=== PATIENT | female | born 1940 | race Caucasian/White ===

== ENCOUNTER 2018-05-07 19:35 | Emergency (ER) | payer MEDICARE, BC ==
[~2018-05-07] VITALS: Ht 157.5 cm; Wt 68.0 kg
[2018-05-07 19:40] VITALS: BP 165/100
[2018-05-07] MEDS ORDERED: HYDROcodone/APAP 5/325MG 1 TAB TABLET PO ONE (20:00)
[2018-05-07] MEDS ORDERED: NEOMYCIN/BACITRAC/POLY TOPICAL OINTMENT 28GM TUBE. TP ONE (20:00)
--- NOTE | 2018-05-07 20:14 | PHYS DOC ---
Past History Past Medical History: High Cholesterol, Hypothyroid Past Medical History Gallstones, Ovarian cyst Past Surgical History: Cholecystectomy, Oophorectomy, Tonsillectomy Past Surgical History tooth extractions Smoking: Quit Greater Than 1 Year Alcohol Use: Rarely Drug Use: None Adult General Chief Complaint Chief Complaint: MECHANICAL FALL HPI HPI Patient is a 77 yo female who presented to the ED ambulatory and complaining of right shoulder pain. Patient states that at approximately 1915 today she was using her riding income tax preparer when she fell off. She states that she hit her right shoulder. She denies any head pain or neck pain. Her shoulder pain is rated as 8/10 in severity. Moving her right shoulder makes the pain worse and nothing makes it better. She denies any radiation of pain. Denies use of blood thinners. Denies numbness or tingling. Denies pleuritic pain. Denies chest wall pain. Ambulatory without difficulty. Patient report she also struck her left leg on the mower causing some abrasions/skin tears to lower left leg. Reports last tetanus < 5 years ago. Review of Systems Review of Systems Constitutional: Denies fever or chills [] Eyes: Denies change in visual acuity, redness, or eye pain [] HENT: Denies nasal congestion or sore throat [] Respiratory: Denies cough or shortness of breath [] Cardiovascular: Denies chest pain and palpitations [] GI: Denies abdominal pain, nausea, vomiting, bloody stools or diarrhea [] : Denies dysuria or hematuria [] Musculoskeletal: Endorses right shoulder pain and left lower extremity pain. Denies neck or back pain [] Integument: Endorses several superficial skin lacerations on her left lower extremity [] Neurologic: Denies headache, focal weakness or sensory changes [] Complete systems were reviewed and found to be within normal limits, except as documented in this note. Physical Exam Physical Exam Constitutional: Well developed, well nourished, no acute distress, non-toxic appearance. [] HENT: Normocephalic, atraumatic, oropharynx moist, dentures in place Eyes: PERRL, EOMI. No nystagmus Neck: Normal range of motion, no midline tenderness, supple, no stridor. [] Cardiovascular: Heart rate regular rhythm, no murmur [] Lungs & Thorax: Bilateral breath sounds clear to auscultation, no chest wall/ rib tenderness on palpation Abdomen: Soft, no tenderness, Pelvis stable and nontender Skin: Warm, dry, no erythema, no rash. 2 superficial skin tears to the left lower extremity anterior medial aspect of up. [] Back: No midline tenderness, no CVA tenderness. [] Extremities: Tenderness to lateral aspect of right shoulder. Hematoma noted over the proximal aspect of the left tibia. No tibia plateau tenderness. Left lower extremity ROM intact. Right shoulder ROM restricted in abduction to 90 degrees. Distal clavicle tender to palpation but no deformity noted. [] Neurologic: Alert and oriented X 3, normal motor function, normal sensory function, no focal deficits noted. Cerebellar function intact. Psychologic: Affect normal, judgement normal, mood normal. [] EKG EKG [] Radiology/Procedures Radiology/Procedures Preliminary interpretation of right shoulder XR 3 view: No acute fracture or dislocation noted Course & Med Decision Making Course & Med Decision Making Pertinent Labs and Imaging studies reviewed. (See chart for details) Patient is a 77 yo female who presents to the ED complaining of right shoulder pain after falling off her riding income tax preparer. Denies LOC. Patient neurologically intact. No hx of blood thinner use. Cervical spine without tenderness. XR of right shoulder without acute fracture or dislocation. Left leg with 2 skin tears that were cleaned and dressed. Tetanus up to date. Hematoma noted without bony tenderness. Patient with full ROM without difficulty. ICE and BHAVNA wrap applied. Pain addressed. Sling provided with education on need to perform "shoulder circles" to prevent frozen shoulder syndrome. Patient stable for discharge with outpatient follow-up with PCP/ Orthopedics. Orthopedic referral provided. Discussed findings and plan with patient and family, who acknowledge understanding and agreement. Dragon Disclaimer Dragon Disclaimer This electronic medical record was generated, in whole or in part, using a voice recognition dictation system. Departure Departure: Impression: Primary Impression: Fall Additional Impressions: Right shoulder pain Skin tear Contusion of left lower leg Disposition: 01 HOME, SELF-CARE Referrals: BUTCH PEDROZA MD (PCP) [facility] Patient Instructions: Fall Prevention and Home Safety, Zjor-yo-Kivk, Hematoma, Biba-ly-Grlt, Shoulder Pain, Vmrd-mx-Rqus, Skin Tear Care, Wabz-xm-Atup Scripts Hydrocodone Bit/Acetaminophen (NORCO 5-325 TABLET) 1 Each Tablet 1 TAB PO Q6HRS PRN for PAIN, #10 TAB Prov: MILENA WEBBER DO 05/07/18 Problem Qualifiers Primary Impression: Fall Encounter type: initial encounter Qualified Codes: W19.XXXA - Unspecified fall, initial encounter Additional Impressions: Right shoulder pain Chronicity: acute Qualified Codes: M25.511 - Pain in right shoulder Contusion of left lower leg Encounter type: initial encounter Qualified Codes: S80.12XA - Contusion of left lower leg, initial encounter MILENA WEBBER DO May 07, 2018 20:14
[2018-05-07] MEDS ORDERED: NEOMY/BACITR/POLYMYXIN OINT PACKET. TP ONE (20:23)
[2018-05-07] MEDS ORDERED: HYDR-971 PO (21:11)
[2018-05-07] MEDS ORDERED: KETOROLAC 30 MG/ML VIAL. ONE (21:34)
[2018-05-07] MEDS ORDERED: KETOROLAC 60 MG/2 ML VIAL. IM ONE (21:45)
--- NOTE | 2018-05-08 08:56 | RAD ---
INDICATION: Pain after fall today. Pain with motion. TECHNIQUE: 3 views of the right shoulder are submitted for review. No comparison is available. FINDINGS: There are mild degenerative changes at the right acromioclavicular joint. An acute fracture or dislocation is not apparent. IMPRESSION: Negative for fracture. Electronically signed by: Paul Bonilla MD (05/08/2018 8:52 AM) [id number]
== END 2018-05-07 21:35 | disposition home or self-care (01) ==
LOC: ER 19:35
DX: S81.812A Laceration without foreign body, left lower leg, initial encounter (principal); M25.511 Pain in right shoulder; E78.00 Pure hypercholesterolemia, unspecified; E03.9 Hypothyroidism, unspecified; Z87.891 Personal history of nicotine dependence; W28.XXXA Contact with powered lawn mower, initial encounter; Y93.I9 Activity, other involving external motion; Y92.89 Other specified places as the place of occurrence of the external cause; Y99.8 Other external cause status
CPT/HCPCS: 73030; 96372; 99284; J1885

== ENCOUNTER → 2018-05-09 | Outpatient (CLI) | payer MEDICARE, BC ==
[2018-05-07 19:40] VITALS: BP 165/100
[~2018-05-09] MED LIST: HYDR-971 PO
--- NOTE | 2018-05-09 12:56 | RAD ---
Clinical Indication: Fall off lawnmower 2 days ago, headache Technique: Study is dated May 09, 2018. CT images of the head were obtained from the skull base to the vertex without IV contrast. There are no comparison studies available. One or more of the following individualized dose reduction techniques were utilized for this examination: 1. Automated exposure control 2. Adjustment of the mA and/or kV according to patient size 3. Use of iterative reconstruction technique Findings: There is diffuse, symmetric prominence of the ventricles and subarachnoid spaces consistent with age-related parenchymal volume loss. There are areas of scattered decreased attenuation in the supratentorial white matter. While nonspecific, findings are likely secondary to small vessel ischemic disease. There is no hemorrhage, extraaxial fluid collection, mass, or midline shift. There is no large vascular distribution infarct. The posterior fossa and brainstem are unremarkable. Orbits are normal. The visualized paranasal sinuses are clear. There is no skull fracture appreciated on bone level images. Impression: No acute intracranial findings. Brain parenchymal volume loss and minimal probable small vessel ischemic disease. Electronically signed by: Paul Bonilla MD (05/09/2018 12:52 PM) [id number]
== END | disposition home or self-care (01) ==
LOC: CT 12:17
PROVIDERS: ATTEND Family Medicine
DX: R51 Headache (principal)
CPT/HCPCS: 70450

== ENCOUNTER → 2018-05-26 | Outpatient (CLI) | payer MEDICARE, BC ==
[2018-05-07 19:40] VITALS: BP 165/100
--- NOTE | 2018-05-26 16:44 | RAD ---
Right Lower Extremity Venous Doppler Ultrasound Indication: Right leg pain. Fell off lawnmower May 07, 2018. Comparison: None. Procedure: Color Doppler, spectral Doppler, and grayscale images with and without compression are obtained in the area of the common femoral vein, superficial femoral vein - femoral vein junction, main femoral vein (superficial femoral vein) and popliteal vein. Veins of the proximal calf are also imaged. Findings: There is normal duplex flow, color flow and compressibility of all visualized vein segments. There is no evidence of deep venous thrombosis. Thompson scale imaging of the posterior right knee in area of lump demonstrates a complex lesion which measures 1.6 x 0.8 x 0.9 cm. Impression: 1. No evidence of right lower extremity deep venous thrombosis. 2. Palpable lump in the right posterior knee corresponds to a complex lesion which appears to have hypoechoic and intermediate echoic elements. This measures 1.6 cm in maximum dimension. Given history of trauma, this may represent organizing hematoma. Recommend clinical monitoring. If indicated, follow-up ultrasound imaging could be performed after several months to ensure resolution. Electronically signed by: Jalil Mcgarry MD (05/26/2018 4:40 PM) [place] [id number]
== END | disposition home or self-care (01) ==
LOC: US 15:44
PROVIDERS: ATTEND Physician Assistant
DX: R22.41 Localized swelling, mass and lump, right lower limb (principal); E78.00 Pure hypercholesterolemia, unspecified; E03.9 Hypothyroidism, unspecified; Z87.891 Personal history of nicotine dependence
CPT/HCPCS: 93971

== ENCOUNTER 2018-06-05 09:52 | Inpatient (IN) | payer MEDICARE, BC ==
[~2018-06-05] VITALS: Ht 154.9 cm; Wt 67.3 kg
[2018-06-05 11:14] VITALS: BP 110/72
[2018-06-05] MEDS ORDERED: IOHEXOL 240 MG/ML 50ML VIAL. ONE (11:15)
[2018-06-05] MEDS ORDERED: ONDANSETRON PF 4 MG/2 ML VIAL. IV PRN (11:15)
[2018-06-05] MEDS ORDERED: ACETAMINOPHEN 325 MG TABLET PO PRN (11:15)
[2018-06-05 11:19] LABS: BILIRUBIN,URINE NEG (NEG); CLARITY,URINE CLEAR; COLOR,URINE YELLOW; GLUCOSE,URINE NEG (NEG)
[2018-06-05 11:20] LABS: BACTERIA,URINE 0 /HPF (0-FEW); NITRITE,URINE NEG (NEG); SQUAMOUS EPITHELIAL CELL,UR FEW /LPF; UROBILINOGEN,URINE 0.2 mg/dL (0.2 mg/dL)
[2018-06-05 11:33] LABS: BASO # 0.1 x10^3/uL (0.0-0.2); BASO % 1 % (0-3); EOS # 0.1 x10^3/uL (0.0-0.7); EOS % 1 % (0-3); HEMATOCRIT 27.5 % (36.0-47.0); HEMOGLOBIN 9.3 g/dL (12.0-15.5); LYMPH # 1.4 x10^3/uL (1.0-4.8); LYMPH % 23 % (24-48); MEAN CORPUSCULAR HEMOGLOBIN 29 pg (25-35); MEAN CORPUSCULAR HGB CONC 34 g/dL (31-37); MEAN CORPUSCULAR VOLUME 86 fL (79-100); MONO # 0.4 x10^3/uL (0.0-1.1); MONO % 7 % (0-9); NEUT # 4.3 x10^3uL (1.8-7.7); NEUT % 68 % (31-73); PLATELET COUNT 285 x10^3/uL (140-400); RED BLOOD COUNT 3.19 x10^6/uL (3.50-5.40); RED CELL DISTRIBUTION WIDTH 13.5 % (11.5-14.5); WHITE BLOOD COUNT 6.3 x10^3/uL (4.0-11.0)
--- NOTE | 2018-06-05 11:35 | EKG ---
[address] [address] Test Date: 2018-06-05 Test Time: 11:20:22 Pat Name: UMU SALDIVAR Department: Room: 113 A Gender: F Return Clerk: : 1940 Requested By: BUTCH PEDROZA Order Number: [id number] Reading MD: Tonio Pedro MD Measurements Intervals [place] Rate: 91 P: 31 WV: 162 QRS: 11 QRSD: 78 T: 7 QT: 340 QTc: 420 Interpretive Statements SINUS RHYTHM Electronically Signed On 06-06-2018 11:24:50 CDT by Tonio Pedro MD
[2018-06-05 11:43] LABS: ALBUMIN 2.9 g/dL (3.4-5.0); ALBUMIN/GLOBULIN RATIO 0.9 (1.0-1.7); CALCIUM 9.5 mg/dL (8.5-10.1); CREATININE 1.3 mg/dL (0.6-1.0); GFR 39.9; POTASSIUM 4.4 mmol/L (3.5-5.1); TOTAL BILIRUBIN 0.2 mg/dL (0.2-1.0); TOTAL PROTEIN 6.2 g/dL (6.4-8.2)
[2018-06-05 12:12] LABS: % BANDS 1 % (0-9); % EOS 1 % (0-5); % LYMPHS 20 % (24-48); % MONOS 9 % (0-10); % SEGS 69 % (35-66)
[2018-06-05 12:13] LABS: PLT ESTIMATE ADEQUATE (ADEQUATE); TOXIC GRANULATION PRESENT
--- NOTE | 2018-06-05 13:54 | RAD ---
CT of the abdomen and pelvis without contrast, 06/05/2018: HISTORY: GI tract bleed, abdominal pain Multidetector CT imaging was performed following oral administration of contrast. No IV contrast was administered due to the patient's known renal insufficiency. The gallbladder is surgically absent. Several splenic and hepatic calcifications are compatible with old granulomatous disease. There is a single small calcification along the posterior aspect of the pancreatic head. No pancreatic mass is seen. The spleen is of normal size. A 3.4 cm cystic structure at the left renal hilum is probably a parapelvic renal cyst. There is no evidence of hydronephrosis. The unopacified kidneys are otherwise unremarkable. Moderate aortic calcific plaquing is present without evidence of aneurysm. No abdominal or pelvic adenopathy is seen. The uterus is atrophic. There are moderate scattered colonic diverticula. No paracolonic inflammatory process is seen. The bowel loops are not dilated. No free air or free fluid is evident in the abdomen or pelvis. IMPRESSION: 1. Colonic diverticulosis. 2. Left renal cyst. 3. No acute abdominal or pelvic abnormality is detected. PQRS Compliance Statement: One or more of the following individualized dose reduction techniques were utilized for this examination: 1. Automated exposure control 2. Adjustment of the mA and/or kV according to patient size 3. Use of iterative reconstruction technique Electronically signed by: Dangelo Perdomo MD (06/05/2018 1:51 PM) [facility]
[2018-06-05] MEDS: IV NORMAL SALINE 1,000ML 1,000 ML IV SCH (14:18)
[2018-06-05] MEDS: PANTOPRAZOLE IV 40 MG VIAL. IVP SCH (14:19)
[2018-06-05] MEDS ORDERED: VIT1CAPS17 PO (14:33)
[2018-06-05] MEDS ORDERED: CALC-30 PO (14:33)
[2018-06-05] MEDS ORDERED: ASPI-612 PO (14:39)
[2018-06-05] MEDS ORDERED: LEVO112T4 PO (14:39)
[2018-06-05] MEDS ORDERED: FENO160T PO (14:39)
[2018-06-05] MEDS ORDERED: SULF1TAB24 PO (14:39)
[2018-06-05 15:21] VITALS: BP 101/68
[2018-06-05] MEDS ORDERED: HYDROcodone/APAP 5/325MG 1 TAB TABLET PO PRN (17:30)
[2018-06-05 20:01] VITALS: BP 98/61
[2018-06-05] MEDS: SUCRALFATE 1 GM TABLET. PO SCH (20:13)
[2018-06-05] MEDS: SMZ/TMP 800/160MG TABLET. PO SCH (20:27)
[2018-06-05 23:00] VITALS: BP 100/54
[2018-06-06] MEDS: IV NORMAL SALINE 1,000ML 1,000 ML IV SCH (03:37)
[2018-06-06 05:24] LABS: FECAL OB PT POSITIVE (NEG)
[2018-06-06 05:25] VITALS: BP 95/60
[2018-06-06 06:42] LABS: BASO # 0.1 x10^3/uL (0.0-0.2); BASO % 2 % (0-3); EOS # 0.3 x10^3/uL (0.0-0.7); EOS % 6 % (0-3); HEMOGLOBIN 8.4 g/dL (12.0-15.5); LYMPH # 1.3 x10^3/uL (1.0-4.8); LYMPH % 29 % (24-48); MEAN CORPUSCULAR HEMOGLOBIN 29 pg (25-35); MEAN CORPUSCULAR HGB CONC 34 g/dL (31-37); MEAN CORPUSCULAR VOLUME 87 fL (79-100); MONO # 0.4 x10^3/uL (0.0-1.1); MONO % 9 % (0-9); NEUT # 2.5 x10^3uL (1.8-7.7); NEUT % 54 % (31-73); PLATELET COUNT 260 x10^3/uL (140-400); RED BLOOD COUNT 2.88 x10^6/uL (3.50-5.40); RED CELL DISTRIBUTION WIDTH 13.7 % (11.5-14.5); WHITE BLOOD COUNT 4.6 x10^3/uL (4.0-11.0)
[2018-06-06 06:55] LABS: CALCIUM 8.5 mg/dL (8.5-10.1); CREATININE 1.1 mg/dL (0.6-1.0); GFR 48.4
[2018-06-06] MEDS ORDERED: LEVOTHYROXINE 112 MCG TABLET PO SCH (07:30)
[2018-06-06] MEDS: SUCRALFATE 1 GM TABLET. PO SCH ×2 (08:21→14:25)
[2018-06-06] MEDS: SMZ/TMP 800/160MG TABLET. PO SCH (08:21)
[2018-06-06] MEDS: PANTOPRAZOLE IV 40 MG VIAL. IVP SCH (08:21)
[2018-06-06 10:43] VITALS: BP 99/64
[2018-06-06 14:29] VITALS: BP 99/66
== END 2018-06-06 15:30 | disposition short-term general hospital (02) | DRG 378 ==
LOC: 1 SOUTH 09:52
PROVIDERS: ADMIT Family Medicine; ATTEND Family Medicine
DX: K62.5 Hemorrhage of anus and rectum (principal); E44.0 Moderate protein-calorie malnutrition; E03.9 Hypothyroidism, unspecified; M81.0 Age-related osteoporosis without current pathological fracture; R53.83 Other fatigue; Z90.49 Acquired absence of other specified parts of digestive tract; Z90.721 Acquired absence of ovaries, unilateral; Z78.0 Asymptomatic menopausal state; Z80.0 Family history of malignant neoplasm of digestive organs; Z83.3 Family history of diabetes mellitus; Z82.49 Family history of ischemic heart disease and other diseases of the circulatory system; Z87.891 Personal history of nicotine dependence; Z79.899 Other long term (current) drug therapy; Z88.8 Allergy status to other drugs, medicaments and biological substances
CPT/HCPCS: 36415; 74176; 80048; 80053; 81001; 82274; 83540; 83550; 85007; 85025; 87086; 93005; C9113; J7030

== ENCOUNTER → 2019-11-09 | Outpatient (CLI) | payer MEDICARE, BC ==
[~2019-11-09] MED LIST changes: +ASPI-612 PO; +CALC-30 PO; +FENO160T PO; +HYDR-3165 PO; -HYDR-971 PO; +LEVO112T4 PO; +SULF1TAB24 PO; +VIT1CAPS17 PO
--- NOTE | 2019-11-09 10:48 | RAD ---
EXAM: CAROTID DOPPLER SONOGRAM. HISTORY: Carotid stenosis. TECHNIQUE: Thompson scale and color Doppler sonographic evaluation of the neck with spectral waveform analysis was performed and static images are submitted for review. FINDINGS: RIGHT: The peak systolic velocity within the common carotid artery is 72 cm/sec. The peak systolic velocity within the internal carotid artery is 104 cm/sec and the end diastolic velocity within the internal carotid artery is 22 cm/sec. The ICA/CCA ratio is 1.3. Grayscale images demonstrate no grayscale stenosis. LEFT: The peak systolic velocity within the common carotid artery is 62 cm/sec. The peak systolic velocity within the internal carotid artery is 115 cm/sec and the end diastolic velocity within the internal carotid artery is 28 cm/sec. The ICA/CCA ratio is 1.8. Grayscale images demonstrate no grayscale stenosis. There is antegrade flow within both vertebral arteries. IMPRESSION: 1. No evidence of hemodynamically significant stenosis. PQRS Compliance Statement - Stenosis calculations for CT, MR and conventional angiography are based upon measurement of the distal ICA diameter in accordance with the NASCET methodology. Stenosis calculations for carotid ultrasound studies are derived from validated velocity criteria which are known to correlate with the NASCET methodology. Electronically signed by: Radha Foster MD (11/09/2019 10:45 AM) [facility]
== END | disposition home or self-care (01) ==
LOC: US 09:28
PROVIDERS: ATTEND Family Medicine
DX: I65.23 Occlusion and stenosis of bilateral carotid arteries (principal)
CPT/HCPCS: 93880

== ENCOUNTER → 2019-12-15 | Outpatient (CLI) | payer MEDICARE, BC ==
[2019-12-15 14:02] LABS: BASO % 1 % (0-3); EOS # 0.1 x10^3/uL (0.0-0.7); EOS % 3 % (0-3); HEMATOCRIT 40.1 % (36.0-47.0); HEMOGLOBIN 13.3 g/dL (12.0-15.5); LYMPH # 1.3 x10^3/uL (1.0-4.8); LYMPH % 30 % (24-48); MEAN CORPUSCULAR HEMOGLOBIN 29 pg (25-35); MEAN CORPUSCULAR HGB CONC 33 g/dL (31-37); MEAN CORPUSCULAR VOLUME 87 fL (79-100); MONO # 0.6 x10^3/uL (0.0-1.1); MONO % 13 % (0-9); NEUT # 2.2 x10^3uL (1.8-7.7); NEUT % 53 % (31-73); PLATELET COUNT 270 x10^3/uL (140-400); RED BLOOD COUNT 4.62 x10^6/uL (3.50-5.40); RED CELL DISTRIBUTION WIDTH 13.4 % (11.5-14.5); WHITE BLOOD COUNT 4.3 x10^3/uL (4.0-11.0)
[2019-12-15 14:28] LABS: CALCIUM 9.2 mg/dL (8.5-10.1); CREATININE 0.8 mg/dL (0.6-1.0); GFR 69.6
--- NOTE | 2019-12-15 16:42 | RAD ---
Exam performed: 2 views of the chest. Indication: Cough Date of Service: 12/15/2019 1:41 PM . Comparison : None available Findings: PA and lateral radiographs of the chest reveal a normal cardiomediastinal contour. The lungs are clear. No pleural fluid is seen. The visualized osseous structures are unremarkable. Impression: No acute cardiopulmonary process seen. Electronically signed by: Autumn Che MD (12/15/2019 4:39 PM) [id number]
== END | disposition home or self-care (01) ==
LOC: LAB 13:00
PROVIDERS: ATTEND Family Medicine
DX: R07.1 Chest pain on breathing (principal)
CPT/HCPCS: 36415; 71046; 80048; 82550; 85025; 85379

== ENCOUNTER → 2019-12-17 | Outpatient (CLI) | payer MEDICARE, BC ==
[~2019-12-17] MED LIST changes: +IOHEXOL 350 MG/ML 100 ML VIAL. IV ONE
--- NOTE | 2019-12-17 14:40 | RAD ---
CT pulmonary angiogram without comparison for pulmonary embolism. TECHNIQUE: Contiguous helical 2.0 mm axial images are obtained from the thoracic inlet to the base of the diaphragm following a ministration of IV contrast in the pulmonary arterial phase. Sagittal and coronal MIPS are evaluated. FINDINGS:There is a small calcified granuloma in the right lung base. No suspicious lung nodules or masses are identified. No areas of focal infiltrate are seen. There are no pleural effusions. Heart size within normal limits. Calcified mediastinal adenopathy is seen, with no suspicious mediastinal, hilar, or axillary lymph nodes evident. No main, lobar, or segmental pulmonary arterial embolism is identified. There has been a prior cholecystectomy. Evaluation of the upper abdominal organs is limited by phase of contrast enhancement. No gross morphologic abnormalities of the visualized organs are identified. There is a small nonspecific 1 cm lymph node in the gastrohepatic recess. There is a benign vertebral body hemangioma at T12, and there are flowing marginal osteophytes throughout the midthoracic spine. No suspicious osteoblastic or osteolytic bone lesions are identified. IMPRESSION: 1. No evidence of main, lobar, or segmental pulmonary arterial embolism. 2. Sequelae of antecedent granulomatous disease. 3. Large benign hemangioma of T12. 4. Other chronic changes as described. PQRS Compliance Statement: One or more of the following individualized dose reduction techniques were utilized for this examination: 1. Automated exposure control 2. Adjustment of the mA and/or kV according to patient size 3. Use of iterative reconstruction technique Electronically signed by: Misael Styles MD (12/17/2019 2:38 PM) [id number]
== END | disposition home or self-care (01) ==
LOC: CT 12:39
PROVIDERS: ATTEND Family Medicine
DX: J84.10 Pulmonary fibrosis, unspecified (principal); R59.0 Localized enlarged lymph nodes; D18.09 Hemangioma of other sites; M25.78 Osteophyte, vertebrae; D71 Functional disorders of polymorphonuclear neutrophils; Z90.49 Acquired absence of other specified parts of digestive tract
CPT/HCPCS: 71275; Q9967

== ENCOUNTER 2021-04-06 07:15 | Inpatient (IN) | payer MEDICARE, BC ==
[~2021-04-06] VITALS: Ht 157.5 cm; Wt 68.8 kg
[~2021-04-06 07:15] MED LIST changes: -ASPI-612 PO; +ASPI-889 PO; -IOHEXOL 350 MG/ML 100 ML VIAL. IV ONE
[2021-04-06 07:29] VITALS: BP 111/73
[2021-04-06] MEDS: LEVOTHYROXINE 112 MCG TABLET PO SCH (09:00)
[2021-04-06] MEDS ORDERED: HYDROcodone/APAP 5/325MG 1 TAB TABLET PO PRN (09:00)
[2021-04-06] MEDS ORDERED: POTA20TA4 PO (09:27)
[2021-04-06] MEDS ORDERED: MAGN250T10 PO (09:27)
[2021-04-06] MEDS ORDERED: FENO160T PO (09:27)
[2021-04-06] MEDS ORDERED: PANT40TA6 PO (09:27)
[2021-04-06] MEDS ORDERED: CALC-109 PO (09:27)
[2021-04-06] MEDS ORDERED: LUTE1CAP5 PO (09:27)
[2021-04-06] MEDS ORDERED: ASCO500C PO (09:27)
[2021-04-06] MEDS ORDERED: LEVO100T5 PO (09:27)
[2021-04-06] MEDS ORDERED: FLUT15.812 NS (09:28)
[2021-04-06] MEDS ORDERED: BIOT5000 PO (09:28)
[2021-04-06] MEDS ORDERED: IOHEXOL 240 MG/ML 50ML VIAL. ONE (09:28)
[2021-04-06] MEDS ORDERED: MAGN250T2 PO (09:28)
[2021-04-06 09:41] LABS: BASO % 1 % (0-3); EOS # 0.1 x10^3/uL (0.0-0.7); EOS % 1 % (0-3); HEMATOCRIT 38.2 % (36.0-47.0); HEMOGLOBIN 12.8 g/dL (12.0-15.5); LYMPH # 1.1 x10^3/uL (1.0-4.8); LYMPH % 23 % (24-48); MEAN CORPUSCULAR HEMOGLOBIN 29 pg (25-35); MEAN CORPUSCULAR HGB CONC 34 g/dL (31-37); MEAN CORPUSCULAR VOLUME 88 fL (79-100); MONO # 0.4 x10^3/uL (0.0-1.1); MONO % 9 % (0-9); NEUT # 3.3 x10^3uL (1.8-7.7); NEUT % 66 % (31-73); PLATELET COUNT 244 x10^3/uL (140-400); RED BLOOD COUNT 4.36 x10^6/uL (3.50-5.40); RED CELL DISTRIBUTION WIDTH 13.8 % (11.5-14.5); WHITE BLOOD COUNT 4.9 x10^3/uL (4.0-11.0)
[2021-04-06 10:15] LABS: ALBUMIN 3.2 g/dL (3.4-5.0); GFR 53.6; POTASSIUM 4.5 mmol/L (3.5-5.1); TOTAL BILIRUBIN 0.4 mg/dL (0.2-1.0); TOTAL PROTEIN 6.3 g/dL (6.4-8.2)
[2021-04-06] MEDS ORDERED: IOHEXOL 240 MG/ML 50ML VIAL. PO ONE (10:15)
[2021-04-06] MEDS ORDERED: IOHEXOL 300 MG/ML 75 ML VIAL. IV ONE (10:15)
[2021-04-06] MEDS: CALCIUM CARB/VIT D3 500/200 TABLET PO SCH ×2 (10:41→21:00)
[2021-04-06] MEDS: IV 1/2 NORMAL SALINE 1,000 ML IV SCH ×2 (10:42→21:28)
[2021-04-06 11:21] VITALS: BP 141/70
--- NOTE | 2021-04-06 11:22 | RAD ---
EXAM: Abdomen and pelvis CT with intravenous contrast. HISTORY: Diarrhea. TECHNIQUE: Computed tomographic images of the abdomen and pelvis were obtained following the administ ration of intravenous contrast. Multiplanar reformatting was performed. *One or more of the following individualized dose reduction techniques were utilized for this examina tion: 1. Automated exposure control. 2. Adjustment of the mA and/or kV according to patient size. 3. Use of iterative reconstruction technique. COMPARISON: 06/05/2018. FINDINGS: Evaluation of the lower thorax demonstrates no infiltrate or pleural effusion. There is celeste iary ductal dilatation likely due to reservoir effect status post cholecystectomy. The pancreas, sple en, stomach and adrenal glands are unremarkable. There are multiple stable left renal parapelvic cysts. There are suspected extrarenal pelves or pelvi ectasis. There is no hydronephrosis. There is no appendicitis. There is no bowel obstruction. There i s colonic diverticulosis. There is no convincing diverticulitis. The bladder, uterus and adnexal regions are unremarkable. There is aortic atherosclerosis. The aorta is normal in caliber. 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 There are degenerative changes invol ving the spine and both hips. There is no acute or suspicious osseous lesion. There are several osseo us hemangiomas. IMPRESSION: 1. Colonic diverticulosis, without evidence of diverticulitis. 2. Stable biliary ductal dilatation, likely due to reservoir effect status post cholecystomy. 3. Stable multiple left renal parapelvic cysts and suspected extrarenal pelves or pelviectasis. Electronically signed by: Rubia Antony MD (04/06/2021 11:20 AM) [id number]
[2021-04-06 13:20] LABS: FECAL OB PT NEGATIVE (NEG)
[2021-04-06 15:25] VITALS: BP 139/83
--- NOTE | 2021-04-06 15:32 | NUR ---
NURSING NOTE REPORT FROM JAZIEL CARLSON, THIS NURSE TAKING OVER PT CARE. ALDO KENNEDY.
[2021-04-06 19:10] VITALS: BP 144/77
--- NOTE | 2021-04-06 20:01 | HP ---
ADMIT DATE: 04/06/2021 HISTORY OF PRESENT ILLNESS: A 80-year-old female for the last 2-3 days has been having uncontrolled diarrhea up to 10-15 stools per day and becoming increasingly dehydrated. The patient notes diffuse abdominal discomfort. No explosive diarrhea and no recent antibiotics. Denies any melena with this, but does have uncontrolled basically incontinence of her stools and looks like 10-15 stools per day. The patient also feels sick to her stomach, unable to keep things down and as a result of this, the patient was admitted for further evaluation and treatment. PAST MEDICAL HISTORY: She has had cataracts, tinnitus, macular degeneration, tonsillectomy, hysterectomy, bronchitis, pneumonia, diverticulitis, cholecystectomy, left ovary removed, adhesions, abdominal pain, osteoarthritis, hypothyroidism, influenza vaccine. ALLERGIES: ERYTHROMYCIN AND MEPERIDINE. FAMILY HISTORY: Myocardial infarction, heart attacks, kidney disease, glaucoma, colon cancer in father, Alzheimer's in a brother. SOCIAL HISTORY: Denies smoking, alcohol or drug use. She is a FULL CODE. REVIEW OF SYSTEMS: As noted outside of the nausea, severe diarrhea, denies chest pain or shortness of breath. Denies any melena, hematochezia or hematemesis. Neurologically, the patient is stable there. PHYSICAL EXAMINATION: VITAL SIGNS: Blood pressure 140/80, respiratory rate 20, pulse 82, afebrile, 96 on room air. GENERAL: The patient is anxious appearing white female, in moderate amount of distress. HEENT: The patient's head was atraumatic, normocephalic. Eyes: PERRLA without jaundice. Mouth and throat were normal. Dry mucous membranes. NECK: Supple, without JVD, carotid bruit or thyromegaly. LUNGS: Diminished throughout, but basically clear. CARDIOVASCULAR: Regular sinus rhythm, S1, S2. ABDOMEN: Soft. There is definite tenderness. EXTREMITIES: Without clubbing, cyanosis, nor edema. NEUROLOGIC: The patient otherwise is alert and oriented. LABORATORY DATA: The patient's labs show white count of 4.9, hemoglobin and hematocrit 12 and 38. No left shift. Chemistries: 142, 4.5, BUN and creatinine of 28 elevated and 1. GFR decreased at 53. Blood sugar 99. Albumin low slightly at 3.2. Hemoccult negative stools. IMPRESSION: Uncontrolled diarrhea, dehydration, diffuse abdominal discomfort. We will go ahead and continue to monitor the patient accordingly to make further evaluation on her as indicated, give her IV fluids and monitor stools for any signs of abnormalities there. MARIELENA DR: Eldon TID: [id number]
[2021-04-06] MEDS: ASPIRIN ENTERIC COATED 81 MG TABLET.DR. PO SCH (21:30)
[2021-04-06 23:13] VITALS: BP 140/81
--- NOTE | 2021-04-07 05:13 | NUR ---
PT NEGATIVE FOR C. DIFF, TAKEN OUT OF CONTACT PLUS ISOLATION. PT REPORTS 3 EPISODES OF DIARRHEA OVERNIGHT, BUT BELIEVES HER STOOLS ARE LESS WATERY THAN YESTERDAY. PT TOLERATING CLEAR LIQUIDS.
[2021-04-07 05:20] VITALS: BP 113/73
[2021-04-07] MEDS: LEVOTHYROXINE 112 MCG TABLET PO SCH (06:07)
[2021-04-07] MEDS: IV 1/2 NORMAL SALINE 1,000 ML IV SCH (06:07)
[2021-04-07] MEDS: CALCIUM CARB/VIT D3 500/200 TABLET PO SCH ×2 (08:05→20:26)
[2021-04-07 11:20] VITALS: BP 143/73
[2021-04-07 15:55] VITALS: BP 116/75
[2021-04-07] MEDS ORDERED: ACETAMINOPHEN 325 MG TABLET PO ONE (16:45)
--- NOTE | 2021-04-07 17:38 | NUR ---
NURSING NOTE PT A&O, IN BED THIS AM UPON ASSESSMENT AND MEDICATION ADMINISTRATION. PT C/O DIARRHEA BUT STATES SHE HAS CHRONIC DIARRHEA AND THAT IT HAPPENS FREQUENTLY. STATES SHE HAS IBS. PT DIET ADVANCED. PT TOLERATING WELL. PT C/O HEADACHE THIS AFTERNOON. PT SHOWERED INDEPENDENTLY. ALDO KENNEDY.
[2021-04-07 19:34] VITALS: BP 114/73
[2021-04-07] MEDS: ASPIRIN ENTERIC COATED 81 MG TABLET.DR. PO SCH (20:26)
[2021-04-07 22:58] VITALS: BP 120/76
--- NOTE | 2021-04-08 01:01 | PN ---
SUBJECTIVE: A 80-year-old female in with uncontrolled diarrhea as well as marked dehydration. Says she is feeling a little better today. We are giving her IV fluids. The patient has been gradually increased on her diet. OBJECTIVE: VITAL SIGNS: Blood pressure 120/70, respiratory rate 18, pulse 74, afebrile. GENERAL: The patient alert and oriented. LUNGS: Diminished throughout, poor movement of air. CARDIOVASCULAR: Regular sinus rhythm. ABDOMEN: Soft, nontender, no rebound or guarding. Positive bowel sounds, no hepatosplenomegaly. EXTREMITIES: No clubbing, cyanosis or edema. NEUROLOGIC: The patient is stable. IMPRESSION AND PLAN: Uncontrolled diarrhea as well as dehydration and abdominal discomfort. Plan as above. RICARDO/BERONICA DR: Eldon TID: [id number]
[2021-04-08] MEDS: LEVOTHYROXINE 112 MCG TABLET PO SCH (06:20)
[2021-04-08 06:21] VITALS: BP 121/69
[2021-04-08] MEDS: CALCIUM CARB/VIT D3 500/200 TABLET PO SCH (08:13)
[2021-04-08] MEDS ORDERED: ACETAMINOPHEN/CODEINE 300/30MG TABLET PO ONE (10:30)
[2021-04-08] MEDS ORDERED: ASPI-889 PO (11:08)
[2021-04-08] MEDS ORDERED: PANT40TA6 PO (11:08)
--- NOTE | 2021-04-08 11:28 | NUR ---
Discharge Summary Patient read all discharge instructions in full, denies any questions, patient walked out per self. Invasive line discontinued, no acute concerns.
--- NOTE | 2021-04-15 14:46 | DS ---
DATE OF DISCHARGE: 04/08/2021 HOSPITAL COURSE: A 80-year-old female came in with uncontrolled diarrhea up to 10-12 times a day. Unable to keep enough fluids and can increasingly markedly dehydrated. The patient was brought in and placed on IV fluid hydration and the like. C. difficile was negative. Occult was negative. The patient had a CT scan done of her abdomen and pelvis and that showed diverticulosis without diverticulitis and some biliary ductal dilatation. In any case, the patient made good progress during the rest of her hospitalization with the hydration. BUN was slightly elevated at 29. Albumin slightly low at 3.2. The patient made good progress. She will be set up with Gastroenterology as an outpatient and make further evaluation on her as indicated. IMPRESSION: Uncontrolled diarrhea, dehydration, abdominal discomfort, moderate protein malnutrition. PLAN: As above. Continue to monitor her as an outpatient and make further evaluation with GI medicine. ALEKSANDAR DR: Eldon TID: [id number]
== END 2021-04-08 11:32 | disposition home or self-care (01) | DRG 392 ==
LOC: 1 SOUTH 07:15
PROVIDERS: ADMIT Family Medicine; ATTEND Family Medicine
DX: A08.4 Viral intestinal infection, unspecified (principal); R64 Cachexia; E44.0 Moderate protein-calorie malnutrition; E86.0 Dehydration; E03.9 Hypothyroidism, unspecified; M19.90 Unspecified osteoarthritis, unspecified site; Z90.710 Acquired absence of both cervix and uterus; Z90.721 Acquired absence of ovaries, unilateral; Z82.49 Family history of ischemic heart disease and other diseases of the circulatory system; Z82.0 Family history of epilepsy and other diseases of the nervous system; Z80.0 Family history of malignant neoplasm of digestive organs; Z88.1 Allergy status to other antibiotic agents; Z68.27 Body mass index [BMI] 27.0-27.9, adult
CPT/HCPCS: 36415; 74177; 80053; 82274; 85025; 87177; 87209; 87493; J7030; Q9967